=== PATIENT | male | born 1980 | race Caucasian/White ===

== ENCOUNTER → 2016-12-20 | Outpatient (CLI) | payer BC | LOC: FIMAGING 08:11 | PROVIDERS: ATTEND Internal Medicine Gastroenterology | DX: R10.13 Epigastric pain (principal) | CPT/HCPCS: 78227; A9537 ==

== ENCOUNTER 2017-01-03 09:43 | Observation (INO) | payer BC ==
--- NOTE | 2017-01-03 07:49 | PDHPUP ---
History & Physical Update H&P update statement: This history and physical update is based on an assessment of the patient which was completed after admission or registration (within 24 hours), but prior to the surgery/procedure. H&P update: H&P reviewed & patient examined, no change in patient's condition since H&P completed
[~2017-01-03 09:43] MED LIST: ceFAZolin 3 GM in D5W 100 ML IV ONE
[2017-01-03] MEDS ORDERED: LIDOCAINE 1% 2 ML INJ ID PRN (10:22)
[2017-01-03] MEDS ORDERED: LR 1,000 ML IV ONE (10:22)
[2017-01-03] MEDS ORDERED: PROPOFOL 200 MG/20 ML VIAL ONE (11:12)
[2017-01-03] MEDS ORDERED: DEXAMETHASONE 4 MG/ML VIAL ONE (11:12)
[2017-01-03] MEDS ORDERED: fentaNYL 100 MCG/2 ML INJ ONE ×5 (11:12→13:21)
[2017-01-03] MEDS ORDERED: ONDANSETRON 4 MG/2 ML VIAL ONE ×2 (11:12→12:39)
[2017-01-03] MEDS ORDERED: ROCURONIUM 50 MG/5 ML VIAL ONE (11:12)
[2017-01-03] MEDS ORDERED: MIDAZOLAM 2 MG/2 ML VIAL ONE (11:15)
[2017-01-03] MEDS ORDERED: SCOPOLAMINE HYDROBROMIDE 1.5 MG PATCH TD ONE (11:25)
[2017-01-03] MEDS ORDERED: SCOPOLAMINE HYDROBROMIDE 1.5 MG PATCH TD SCH (11:30)
[2017-01-03] MEDS ORDERED: BUPIVACAINE/EPI 0.25% 30 ML SDV ONE (11:38)
[2017-01-03] MEDS ORDERED: ONDANSETRON 4 MG/2 ML VIAL IVP PRN ×2 (12:04→14:37)
[2017-01-03] MEDS ORDERED: MEPERIDINE 25 MG/ML SYR IVP PRN (12:04)
[2017-01-03] MEDS ORDERED: LR 500 ML IV PRN (12:04)
[2017-01-03] MEDS ORDERED: DEXAMETHASONE 4 MG/ML VIAL IVP PRN (12:04)
[2017-01-03] MEDS ORDERED: NALOXONE HCL 0.4 MG/ML INJ IVP PRN ×3 (12:04→12:40)
--- NOTE | 2017-01-03 12:04 | PDANEPAE ---
ANE History of Present Illness 36 year old with PMH of obesity, KAITLYNN on CPAP, Chronic pain. He has had anesthesia without complication. ANE Past Medical History - Cardiovascular History Hx Hypertension: No Hx Arrhythmias: No Hx Chest Pain: No Hx Coronary Artery / Peripheral Vascular Disease: No Hx CHF / Valvular Disease: No Hx Palpitations: No - Pulmonary History Hx COPD: No Hx Asthma/Reactive Airway Disease: No Hx Recent Upper Respiratory Infection: No Hx Oxygen in Use at Home: No Hx Sleep Apnea: Yes Sleep Apnea Screening Result - Last Documented: Positive Pulmonary History Comment: SLEEP APNEA - Neurologic History Hx Cerebrovascular Accident: No Hx Seizures: No Hx Dementia: No Neurologic History Comment: MIGRAINES OCCAS - Endocrine History Hx Diabetes: No - Renal History Hx Renal Disorders: No - Liver History Hx Hepatic Disorders: No Hepatic History Comment: GB SXS. FATTY LIVER - Neurological & Psychiatric Hx Hx Neurological and Psychiatric Disorders: Yes Neurological / Psychiatric History Comment: ANXIETY - Cancer History Hx Cancer: No - Congenital Disorder History Hx Congenital Disorders: No - GI History Hx Gastrointestinal Disorders: Yes Gastrointestinal History Comment: ABD PAIN, GB SXS - Other Health History Other Health History: NEG - Chronic Pain History Chronic Pain: Yes (BACK PAIN, KNEES, ANKLES) - Surgical History Prior Surgeries: ANKLE/CALF SURG R. KNEE R MENISCUS. NASAL SURG ANE Review of Systems - Exercise capacity METS (RN): 4 METS ANE Patient History - Allergies Allergies/Adverse Reactions: tramadol Allergy (Severe, Verified 01/03/17 11:01) Anaphylaxis hydrocodone Allergy (Verified 01/03/17 11:00) - Home Medications Home Medications: Multivitamins [Multivitamin (*)] 1 each PO DAILY 09/13/15 [Last Taken 09/12/15] PRILOSEC 11/03/15 [Last Taken 01/02/17 08:00] Xanax 1 MG (*) 06/24/16 [Last Taken 01/02/17 17:00] Celebrex 01/02/17 [Last Taken 12/30/16] Clarinex 01/02/17 [Last Taken 01/02/17 08:00] Mylanta Liquid 01/02/17 [Last Taken 01/02/17 08:00] Tylenol 01/02/17 [Last Taken 01/02/17 17:00] - NPO status NPO Since - Liquids (Date): 01/02/17 NPO Since - Liquids (Time): 23:00 NPO Since - Solids (Date): 01/02/17 NPO Since - Solids (Time): 21:00 - Smoking Hx Smoking Status: Never smoked - Family Anes Hx Family Hx Anesthesia Complications: NEG ANE Labs/Vital Signs - Vital Signs Blood Pressure: 129/81 Heart Rate: 84 Respiratory Rate: 16 O2 Sat (%): 95 Height: 187.96 cm Weight: 163.293 kg ANE Physical Exam - Airway Neck exam: FROM Mallampati Score: Class 2 Mouth exam: normal dental/mouth exam - Pulmonary Pulmonary: no respiratory distress - Cardiovascular Cardiovascular: regular rate and rhythym - ASA Status ASA Status: II ANE Anesthesia Plan Anesthesia Plan: general endotracheal anesthesia Specialized Airway: video laryngoscope (glidescope for intubation) Urgent/Emergent Case: Bisi frye completed preop but documented later for safe timely pt care
[2017-01-03] MEDS: fentaNYL 100 MCG/2 ML INJ IVP PRN ×4 (12:41→13:26)
[2017-01-03] MEDS ORDERED: LORazepam 2 MG/ML INJ IVP ONE ×2 (12:43→16:45)
--- NOTE | 2017-01-03 12:44 | POSTANESTH ---
Post Anesthetic Evaluation Cardiovascular Status: Normal, Stable Respiratory Status: Normal, Stable Level of Consciousness/Mental Status: Can Participate in Eval Pain Control: Adequate, Prn Tx Ordered Nausea/Vomiting Control: Adequate, Prn Tx Ordered Complications Possibly Related to Anesthesia: None Noted
--- NOTE | 2017-01-03 12:45 | POSTOPPROG ---
Post Op Note Date of Operation: 01/03/17 Surgeon: Tyshawn Goncalves Anesthesiologist: [place] Anesthesia: GET(General Endotracheal) Pre-op Diagnosis: Biliary Dyskinesia Post-op Diagnosis: Chronic cholecystitis Procedure: Lap fay with liver biopsy Findings: adhesions, critical view obtained Inf/Abcess present in the surg proc area at time of surgery?: No EBL: Minimal Specimen(s): gallbladder, liver biopsy
--- NOTE | 2017-01-03 13:53 | GOP ---
[f rep st] OPERATIVE REPORT DATE OF OPERATION: 01/03/2017 SURGEON: Tyshawn Goncalves MD FIGURE REFINISHER AND REPAIRER: None. ANESTHESIA: General endotracheal. ANESTHESIOLOGIST: Dr. Rhoades. PREOPERATIVE DIAGNOSIS: Biliary dyskinesia with fatty liver. POSTOPERATIVE DIAGNOSIS: Chronic cholecystitis with fatty liver. PROCEDURE PERFORMED: 1. Laparoscopic cholecystectomy. 2. Liver biopsy. FINDINGS: Enlarged fatty liver. Critical view obtained. Biopsy taken from the lateral lobe. SPECIMENS: 1. Gallbladder. 1. Liver biopsy. 2. ESTIMATED BLOOD LOSS: 10 mL. DESCRIPTION OF PROCEDURE: The patient was greeted in the preoperative suite. Once again, risks, be nefits, and alternatives were discussed. Consent was signed. He was then brought back to the OR gaston ite, placed on the table in the supine position after all anesthesia machines, including SCDs were o n and functioning, World Health Organization time-out was performed. Antibiotics were given on-call to the operating room. After successful induction of anesthesia, the patient's abdomen was widely prepped and draped in typical sterile fashion. I entered the abdomen via a vertical cut down inferior to the umbilicus. I achieved insufflation in the patient's abdomen using Veress needle to 15 mmHg CO2, which was well tolerated by the patient. Through this site, I then inserted a 12 mm port using the Visiport technique. I then inserted 3 ad ditional 5 mm ports, 1 in the subxiphoid and 2 in the right upper quadrant, all under direct visuali zation. I then grabbed the fundus of the gallbladder and successfully retracted it cephalad. I was unable to retract it over the enlarged liver. I grasped the infundibulum and, using a combination of electrocautery and blunt dissection, identified 2 and only 2 structures leading toward the gallbl adder. The cystic duct was clipped and divided. The same was done for the cystic artery. Once it was successfully divided, I turned my attention toward taking the gallbladder off the liver bed, whi ch was done with electrocautery. Once done, it was placed in an EndoCatch bag and removed. I inspected my clips, which were noted to be in excellent position and hemostatic. After this was d one, I irrigated the right upper quadrant with 500 mL of sterile saline, noting clear effluent in th e suction canister. I then selected an area on the edge of the liver and took an approximately 1 cm section of it for my liver biopsy. It was removed and passed off. Hemostasis was achieved at this site with electrocautery and covered with a piece of Surgicel. Once again, all sites were noted to be hemostatic. I infiltrated local anesthesia into all the port sites, which were then removed. Prior to doing so, I closed my inferior umbilical incision using t alexander Bello-Thomaskeith fascial closure device and an 0 Vicryl stitch in an interrupted [id number] f ashion. Once this was done, I removed all port sites, desufflated and closed the skin with running 4-0 Monocryl over which Dermabond was placed. The patient was then extubated in the operative suite and taken to the PACU in satisfactory condition. COUNTS: All counts were reported as correct x2. DRAINS: None. /[id number]/MODL
[2017-01-03] MEDS: METOCLOPRAMIDE 10 MG/2 ML VIAL IVP PRN ×2 (16:00→22:11)
[2017-01-03] MEDS: D5W 1/2 NS W/ 20 KCl/L 1,000 ML IV SCH ×2 (16:03→22:38)
[2017-01-03] MEDS: oxyCODONE IR 5 MG TAB PO PRN ×2 (16:15→22:39)
[2017-01-03] MEDS ORDERED: MAGNESIUM HYDROXIDE 30 ML UDCUP PO PRN (16:55)
[2017-01-03] MEDS ORDERED: BISACODYL 10 MG SUPP PR PRN (16:55)
[2017-01-03] MEDS ORDERED: POLYETHYLENE GLYCOL 3350 17 GM PKT PO PRN (16:55)
[2017-01-03] MEDS: HYDROmorphONE/DILAUDID 1 MG/ML SYR IVP PRN (19:20)
[2017-01-03] MEDS ORDERED: CYCLOBENZAPRINE 10 MG TAB PO SCH (21:00)
[2017-01-03] MEDS: ALPRAZolam 1 MG TAB PO PRN (21:01)
[2017-01-03] MEDS: SENNOSIDES/DOCUSATE SODIUM TAB PO SCH (21:06)
[2017-01-03] MEDS: ACETAMINOPHEN 325 MG TAB PO PRN (22:11)
[2017-01-04] MEDS: HYDROmorphONE/DILAUDID 1 MG/ML SYR IVP PRN (01:20)
[2017-01-04] MEDS: D5W 1/2 NS W/ 20 KCl/L 1,000 ML IV SCH (06:01)
[2017-01-04] MEDS: oxyCODONE IR 5 MG TAB PO PRN ×3 (06:26→14:56)
[2017-01-04 08:09] VITALS: RESP 18
[2017-01-04] MEDS: SENNOSIDES/DOCUSATE SODIUM TAB PO SCH (08:28)
[2017-01-04] MEDS: ACETAMINOPHEN 325 MG TAB PO PRN (08:29)
[2017-01-04] MEDS ORDERED: ENOXAPARIN 40 MG/0.4 ML SYR SC SCH (09:00)
[2017-01-04] MEDS: ALPRAZolam 1 MG TAB PO PRN (09:26)
[2017-01-04 11:59] VITALS: BP 125/78; PULSE 84; TEMP 98.6; O2SAT 90
[2017-01-06] MEDS ORDERED: PATCH REMOVAL 1 EA PATCH TD SCH (11:23)
== END 2017-01-04 16:34 | disposition home or self-care (01) ==
LOC: FSGY 09:43 → F3E 14:37
PROVIDERS: ADMIT Surgery; ATTEND Surgery
PROC: 0FB04ZX Excision of Liver, Percutaneous Endoscopic Approach, Diagnostic (ICD-10-PCS; principal; 2017-01-03 11:15)
PROC: 0FT44ZZ Resection of Gallbladder, Percutaneous Endoscopic Approach (ICD-10-PCS; principal; 2017-01-03 11:15)
DX: K81.1 Chronic cholecystitis (principal); K76.0 Fatty (change of) liver, not elsewhere classified; F41.9 Anxiety disorder, unspecified; G47.33 Obstructive sleep apnea (adult) (pediatric)
CPT/HCPCS: 47379; 47562; G0378; J0690; J1100; J1170; J1650; J2060; J2250; J2405; J2704; J2765; J3010

== ENCOUNTER 2017-03-15 14:18 | Emergency (ER) | payer BC ==
[2017-03-15 14:30] VITALS: RESP 18; TEMP 98.2
--- NOTE | 2017-03-15 15:13 | EDPHY ---
H & P Stated Complaint: rash, itching for 5 days starting on arms, now all over torso Time Seen by Provider: 03/15/17 14:53 HPI/ROS: CHIEF COMPLAINT: Itching HISTORY OF PRESENT ILLNESS: The patient is a 36-year-old man who comes to the emergency department requesting medication for scabies. He states that he has had itching and small scabs throughout his torso and arms for the last week. He states that it is similar to several years ago when he had scabies. His partner does not have any symptoms. He has not been traveling. No fever. He has checked his bed in clothing and does not find any evidence of bedbugs. REVIEW OF SYSTEMS: Constitutional: denies: chills, fever, recent illness, recent injury EENTM: denies: blurred vision, double vision, nose congestion Respiratory: denies: cough, shortness of breath Cardiac: denies: chest pain, irregular heart rate, lightheadedness, palpitations Gastrointestinal/Abdominal: denies: abdominal pain, diarrhea, nausea, vomiting, blood streaked stools Genitourinary: denies: dysuria, frequency, hematuria, pain Musculoskeletal: denies: joint pain, muscle pain Skin: See HPI Neurological: denies: headache, numbness, paresthesia, tingling, dizziness, weakness Hematologic/Lymphatic: denies: blood clots, easy bleeding, easy bruising Immunologic/allergic: denies: HIV/AIDS, transplant EXAM: GENERAL: Well-appearing, well-nourished and in no acute distress. HEAD: Atraumatic, normocephalic. EYES: Pupils equal round and reactive to light, extraocular movements intact, sclera anicteric, conjunctiva are normal. ENT: TMs normal, nares patent, oropharynx clear without exudates. Moist mucous membranes. NECK: Normal range of motion, supple without lymphadenopathy or JVD. LUNGS: Breath sounds clear to auscultation bilaterally and equal. No wheezes rales or rhonchi. HEART: Regular rate and rhythm without murmurs, rubs or gallops. ABDOMEN: Soft, nontender, normoactive bowel sounds. No guarding, no rebound. No masses appreciated. BACK: No CVA tenderness, no spinal tenderness, step-offs or deformities EXTREMITIES: Normal range of motion, no pitting or edema. No clubbing or cyanosis. NEUROLOGICAL: Cranial nerves II through XII grossly intact. Normal speech, normal gait. 5/5 strength, normal movement in all extremities, normal sensation PSYCH: Normal mood, normal affect. SKIN: Several small scabs diffuse, pruritic, no erythema or warmth. No abscess. Source: Patient Exam Limitations: No limitations - Personal History Current Tetanus Diphtheria and Acellular Pertussis (TDAP): Yes Tetanus Vaccine Date: WITHIN 10 YRS - Medical/Surgical History Hx Asthma: No Hx Chronic Respiratory Disease: No Hx Diabetes: No Hx Cardiac Disease: No Hx Renal Disease: No Hx Cirrhosis: No Hx Alcoholism: No Hx HIV/AIDS: No Hx Splenectomy or Spleen Trauma: No Other PMH: costochondritis. anxiety, SVT, sinus surgery, knee surgery. obesity. Sleep apnea,cellulitis of leg/ prostitis - Family History Significant Family History: No pertinent family hx - Social History Smoking Status: Never smoked Alcohol Use: Sober Drug Use: None Constitutional: Initial Vital Signs Temperature (C) 36.8 C 03/15/17 14:24 Heart Rate 93 03/15/17 14:24 Respiratory Rate 18 03/15/17 14:24 Blood Pressure 169/103 H 03/15/17 14:24 O2 Sat (%) 94 03/15/17 14:24 O2 Delivery Mode Room Air Allergies/Adverse Reactions: tramadol Allergy (Severe, Verified 01/03/17 11:01) Anaphylaxis hydrocodone Allergy (Verified 01/03/17 15:03) Other-Enter Comments Home Medications: Medication Instructions Recorded ALPRAZolam [Xanax 1 MG (*)] 1 - 2 mg PO DAILY PRN 01/03/17 Acetaminophen [Tylenol ES 500 mg 1,000 mg PO BID PRN 01/03/17 (*)] Docusate Sodium [Colace 100 MG (*)] 100 mg PO BID PRN 01/03/17 celeCOXIB [Celebrex (*)] 200 mg PO DAILY 01/03/17 Ivermectin 3 mg PO ONCE #2 tablet 03/15/17 Permethrin 5% [Elimite 5%] 1 jed TP ONCE #1 cream 03/15/17 Medical Decision Making ED Course/Re-evaluation: The patient has several small scabs that could be consistent with scabies however there are not any specific pattern. They are intensely itchy. He has follow-up next week with his primary care physician. We agreed to try the Ivermectin that worked for him before in if this is not helping they will assess for other options with his primary physician. He also admits that he is an anxiety attack. He took Xanax about an hour ago. 3:40 p.m. the patient decided prefer to have the cream rather than the pill. Differential Diagnosis: Partial list of the Differential diagnosis considered include but were not limited to; scabies, anxiety, bedbugs and although unlikely based on the history and physical exam, I also considered hepatitis, renal disease, allergic reaction, cellulitis, abscess. I discussed these differential diagnoses and the plan with the patient as well as the usual and expected course. The patient understands that the diagnosis is provisional and that in medicine we are not always correct and that further workup is often warranted. Usual and customary warnings were given. All of the patient's questions were answered. The patient was instructed to return to the emergency department should the symptoms at all worsen or return, otherwise to followup with the physician as we discussed. Departure - Departure Disposition: Home, Routine, Self-Care Clinical Impression: Rash Condition: Fair Instructions: Acute Rash (ED) Referrals: Allan Longoria MD [Primary Care Provider] - As per Instructions Prescriptions: Ivermectin 3 mg PO ONCE #2 tablet Permethrin 5% [Elimite 5%] 1 jed TP ONCE #1 cream
[2017-03-15 16:03] VITALS: BP 149/89; PULSE 80; O2SAT 93
[2017-03-17] MEDS ORDERED: NITROGLYCERIN 2% 1 GM PACKET ONE (11:25)
[2017-03-17] MEDS ORDERED: LORazepam 2 MG/ML INJ ONE (12:01)
== END 2017-03-15 16:00 | disposition home or self-care (01) ==
LOC: CED 14:18
DX: R21 Rash and other nonspecific skin eruption (principal)
CPT/HCPCS: J2060

== ENCOUNTER → 2017-04-05 | Outpatient (CLI) | payer BC | LOC: FIMAGING 08:37 | PROVIDERS: ATTEND Internal Medicine Gastroenterology | DX: K30 Functional dyspepsia (principal) | CPT/HCPCS: 78264; A9541 ==

== ENCOUNTER → 2017-04-30 | Outpatient (CLI) | payer BC | LOC: FIMAGING 12:10 | PROVIDERS: ATTEND Internal Medicine Gastroenterology | DX: K76.0 Fatty (change of) liver, not elsewhere classified (principal); R16.1 Splenomegaly, not elsewhere classified ==

== ENCOUNTER 2017-08-02 17:44 | Emergency (ER) | payer OTHER ==
--- NOTE | 2017-08-02 18:14 | EDPHY ---
H & P Stated Complaint: Right leg pain/weakness, anxiety, diarrhea Time Seen by Provider: 08/02/17 17:58 HPI/ROS: CHIEF COMPLAINT: Right leg pain HISTORY OF PRESENT ILLNESS: The patient is a 37 y/o male with anxiety and prior leg cellulitis complaining of a 3 day h/o right lower leg pain. Onset of moderate RLE pain 3 days ago, increasing since then. The pain is localized to the medial aspect of the right lower leg and extends down his loer leg. He is quite concerned about DVT. He has a history of RLE gastrocnemius tear and surgical repair with subsequent severe cellulitis requiring IV abx. Denies swelling, weakness, or paresthesias. Chronic low back pain, without radicular sx. He denies chest pain, dyspnea, fever, recent illness or recent trauma. He also notes he had an atypical, "exceptionally bad" panic attack Saturday night for which he took Ativan and propranolol. REVIEW OF SYSTEMS: Constitutional: No fever, no chills Eyes: No visual changes ENT: No sore throat Respiratory: No cough, no shortness of breath Cardiac: No chest pain Gastrointestinal: No nausea, no vomiting, no abdominal pain Genitourinary: No hematuria, no dysuria Musculoskeletal: see HPI Skin: No rash Neurological: No headache, no numbness, no weakness Psychiatric: Anxiety - Personal History Current Tetanus/Diphtheria Vaccine: Yes Current Tetanus Diphtheria and Acellular Pertussis (TDAP): Yes Tetanus Vaccine Date: WITHIN 10 YRS - Medical/Surgical History PMH: PMH includes: 1. Severe anxiety and panic attacks - Ativan and propranolol 2. History of right leg cellulitis requiring admission after gastrocnemius surgery and ankle scope 3. Back pain Hx Asthma: No Hx Chronic Respiratory Disease: No Hx Diabetes: No Hx Cardiac Disease: No Hx Renal Disease: No Hx Cirrhosis: No Hx Alcoholism: No Hx HIV/AIDS: No Hx Splenectomy or Spleen Trauma: No Other PMH: costochondritis. anxiety, SVT, sinus surgery, knee surgery, fay,. obesity. Sleep apnea,cellulitis of leg/ prostitis - Social History Smoking Status: Never smoked Additional Social History: Nonsmoker. Employed. Lives in [place]. - Physical Exam Exam: General Appearance: Alert, anxious, obese, no distress Eyes: Pupils equal and round, no conjunctival pallor or injection ENT, Mouth: Mucous membranes moist Neck: Normal inspection Respiratory: Lungs are clear to auscultation Cardiovascular: Regular rate and rhythm Gastrointestinal: Abdomen is soft and non- tender Neurological: A&O, nonfocal, normal gait Skin: Warm and dry, no rash Extremities: normal inspection, no swelling, tenderness below right knee on anteromedial aspect, no erythema. Otherwise nontender, no pedal edema Psychiatric: Anxious Constitutional: Initial Vital Signs Temperature (C) 36.8 C 08/02/17 17:46 Heart Rate 85 08/02/17 17:46 Respiratory Rate 18 08/02/17 17:46 Blood Pressure 149/91 H 08/02/17 17:46 O2 Sat (%) 94 08/02/17 17:46 O2 Delivery Mode Room Air Allergies/Adverse Reactions: tramadol Allergy (Severe, Verified 01/03/17 11:01) Anaphylaxis hydrocodone Allergy (Verified 01/03/17 15:03) Other-Enter Comments Home Medications: Medication Instructions Recorded celeCOXIB [Celebrex (*)] 200 mg PO DAILY 01/03/17 Arelis Allergy 08/02/17 Ativan 08/02/17 BENADRYL 08/02/17 Hyoscyamine 08/02/17 Omeprazole 08/02/17 Tylenol 08/02/17 Medical Decision Making - Diagnostics Imaging Results: Extremity Venous Study 08/02/17 18:15 Impression: No deep venous thrombosis right leg. Results called to Dr. Granados at 7:15 PM. Imaging: Discussed imaging studies w/ square dance caller Radiologist ED Course/Re-evaluation: This is a 37 y/o male with history of anxiety, right leg surgery, and right leg cellulitis who presents with a few-day history of right leg pain and sensation of swelling. He has mild tenderness below his right knee on the anteromedial aspect, but otherwise has a normal exam. No systemic infectious symptoms decrease likelihood for cellulitis. I have low clinical suspicion for DVT, but patient is very concerned about this so plan for US to rule out blood clot. US is negative. Reassessed patient and discussed findings. His pain is likely musculoskeletal in nature and could have a psychosomatic component due to his anxiety. He feels quite relieved and is comfortable going home and following up with his PCP as needed. Return precautions discussed. Differential Diagnosis: includes though not limited to recurrent cellulitis, DVT, arterial compromise Departure - Departure Disposition: Home, Routine, Self-Care Clinical Impression: Anxiety, Pain in right lower leg Condition: Good Instructions: Anxiety (ED), Leg Pain (ED) Additional Instructions: Follow up with your primary care provider on Saturday for unimproved symptoms. Return to the ED for severe pain, redness, increasing pain, swelling, fever, or any concerns. Referrals: Allan Longoria MD [Primary Care Provider] - As per Instructions Report Scribed for: Amna Granados Report Scribed by: Tiffany Merlos Date of Report: 08/02/17 Time of Report: 18:14 Physician Review and Approval Statement: 08/02/17 18:34 Portions of this note were transcribed by a certified medical asst. I personally performed a history, physical exam, medical decision making, and confirmed accuracy of information the transcribed note.
[2017-08-02 19:36] VITALS: BP 142/84; PULSE 76; RESP 16; TEMP 98.1; O2SAT 96
== END 2017-08-02 19:36 | disposition home or self-care (01) ==
DX: M79.661 Pain in right lower leg (principal); F41.9 Anxiety disorder, unspecified

== ENCOUNTER → 2017-08-27 | Outpatient (CLI) | payer OTHER | LOC: CIMAGING 17:24 | PROVIDERS: ATTEND Internal Medicine | DX: M46.96 Unspecified inflammatory spondylopathy, lumbar region (principal); M79.605 Pain in left leg | CPT/HCPCS: 73502-PO ==

== ENCOUNTER → 2017-09-09 | Outpatient (CLI) | payer OTHER | LOC: FIMAGING 16:18 | PROVIDERS: ATTEND Internal Medicine | DX: R41.89 Other symptoms and signs involving cognitive functions and awareness (principal); M25.559 Pain in unspecified hip ==

== ENCOUNTER 2017-09-10 17:55 | Emergency (ER) | payer OTHER ==
[2017-09-10 18:03] VITALS: TEMP 98.2
--- NOTE | 2017-09-10 18:45 | EDPHY ---
H & P Stated Complaint: mental health eval-increasing depression Time Seen by Provider: 09/10/17 18:26 HPI/ROS: CHIEF COMPLAINT: Anxiety and depression HISTORY OF PRESENT ILLNESS: Patient is a 37-year-old man with a history of anxiety and depression. He is followed by Dr. Longoria who recommended he come here today. He also has a psychologist that he really likes and has an appoint with him tomorrow. He however does not have a psychiatrist. He had 1 that he fired in August. He also went to [place] for medical detox off of benzos 5 weeks ago. He had been on Xanax up until that point. Now he only occasionally takes gabapentin to help him sleep. He did take some of this last night as well as melatonin and propranolol that was left over from previous anxiety prescription. He denies suicidality. He denies homicidality. He denies hallucinations. He is well kept and able to care for himself. REVIEW OF SYSTEMS: Constitutional: denies: chills, fever, recent illness, recent injury EENTM: denies: blurred vision, double vision, nose congestion Respiratory: denies: cough, shortness of breath Cardiac: denies: chest pain, irregular heart rate, lightheadedness, palpitations Gastrointestinal/Abdominal: denies: abdominal pain, diarrhea, nausea, vomiting, blood streaked stools Genitourinary: denies: dysuria, frequency, hematuria, pain Musculoskeletal: denies: joint pain, muscle pain Skin: denies: lesions, rash, jaundice, bruising Neurological: denies: headache, numbness, paresthesia, tingling, dizziness, weakness Hematologic/Lymphatic: denies: blood clots, easy bleeding, easy bruising Immunologic/allergic: denies: HIV/AIDS, transplant EXAM: GENERAL: Well-appearing, well-nourished and in no acute distress. HEAD: Atraumatic, normocephalic. EYES: Pupils equal round and reactive to light, extraocular movements intact, sclera anicteric, conjunctiva are normal. ENT: TMs normal, nares patent, oropharynx clear without exudates. Moist mucous membranes. NECK: Normal range of motion, supple without lymphadenopathy or JVD. LUNGS: Breath sounds clear to auscultation bilaterally and equal. No wheezes rales or rhonchi. HEART: Regular rate and rhythm without murmurs, rubs or gallops. ABDOMEN: Soft, nontender, normoactive bowel sounds. No guarding, no rebound. No masses appreciated. BACK: No CVA tenderness, no spinal tenderness, step-offs or deformities EXTREMITIES: Normal range of motion, no pitting or edema. No clubbing or cyanosis. NEUROLOGICAL: Cranial nerves II through XII grossly intact. Normal speech, normal gait. 5/5 strength, normal movement in all extremities, normal sensation PSYCH: Very well-spoken, logical sentences, denies suicidality or since homicidality or intent to self-harm. SKIN: Warm, dry, normal turgor, no visible rashes or lesions. Source: Patient Exam Limitations: No limitations - Personal History Current Tetanus/Diphtheria Vaccine: Yes Current Tetanus Diphtheria and Acellular Pertussis (TDAP): Yes Tetanus Vaccine Date: WITHIN 10 YRS - Medical/Surgical History Hx Asthma: No Hx Chronic Respiratory Disease: No Hx Diabetes: No Hx Cardiac Disease: No Hx Renal Disease: No Hx Cirrhosis: No Hx Alcoholism: No Hx HIV/AIDS: No Hx Splenectomy or Spleen Trauma: No Other PMH: costochondritis. anxiety, SVT, sinus surgery, knee surgery, fay,. obesity. Sleep apnea,cellulitis of leg/ prostitis - Family History Significant Family History: No pertinent family hx - Social History Smoking Status: Never smoked Alcohol Use: Sober Constitutional: Initial Vital Signs Temperature (C) 36.8 C 09/10/17 18:00 Heart Rate 78 09/10/17 18:00 Respiratory Rate 20 09/10/17 18:00 Blood Pressure 152/87 H 09/10/17 18:00 O2 Sat (%) 95 09/10/17 18:00 O2 Delivery Mode Room Air Allergies/Adverse Reactions: tramadol Allergy (Severe, Verified 09/10/17 17:59) Anaphylaxis hydrocodone Allergy (Verified 09/10/17 17:59) Other-Enter Comments Home Medications: Medication Instructions Recorded celeCOXIB [Celebrex (*)] 200 mg PO DAILY 01/03/17 Arelis Allergy 08/02/17 BENADRYL 08/02/17 Hyoscyamine 08/02/17 Omeprazole 08/02/17 Tylenol 08/02/17 Medical Decision Making ED Course/Re-evaluation: The patient is depression anxious and has had a complicated prescription history with multiple SSRIs that made him feel suicidal he does not want to go back on nose. He also does not want to go back on benzos because of previous addiction. He is currently without a prescriber but has a psychologist that he very much likes. I will have Mental Health speak with him to try and give him resources for prescriber. He states that he made 20 phone calls today and most of the people on his list were not even psychiatrist. He does not wish to be admitted . I do not believe that he is a danger to himself. 9:10 p.m. the patient was given resource has and referrals. The he is happy with this and declines further workup or testing. Differential Diagnosis: Partial list of the Differential diagnosis considered include but were not limited to; anxiety, depression and although unlikely based on the history and physical exam, I also considered bipolar, schizophrenia, substance abuse. I discussed these differential diagnoses and the plan with the patient as well as the usual and expected course. The patient understands that the diagnosis is provisional and that in medicine we are not always correct and that further workup is often warranted. Usual and customary warnings were given. All of the patient's questions were answered. The patient was instructed to return to the emergency department should the symptoms at all worsen or return, otherwise to followup with the physician as we discussed. Departure - Departure Disposition: Home, Routine, Self-Care Clinical Impression: Anxiety Depression Qualifiers: Depression Type: major depressive disorder Major depression recurrence: recurrent Active/Remission status: currently active Major depression episode severity: moderate Qualified Code(s): F33.1 - Major depressive disorder, recurrent, moderate Condition: Fair Instructions: Depression (ED), Anxiety (ED) Referrals: Allan Longoria MD [Primary Care Provider] - As per Instructions
[2017-09-10 21:27] VITALS: BP 142/79; PULSE 84; RESP 16; O2SAT 96
== END 2017-09-10 21:27 | disposition home or self-care (01) ==
DX: F41.9 Anxiety disorder, unspecified (principal); F33.1 Major depressive disorder, recurrent, moderate

== ENCOUNTER 2017-09-14 03:53 | Emergency (ER) | payer OTHER ==
[2017-09-14 04:03] VITALS: BP 141/92; PULSE 63; RESP 20; TEMP 97.7; O2SAT 95
--- NOTE | 2017-09-14 04:27 | EDPHY ---
H & P Stated Complaint: unable to sleep- blurry vision on right eye Time Seen by Provider: 09/14/17 04:09 HPI/ROS: Chief Complaint: Difficulty sleeping HPI: A 37-year-old male with a history of anxiety and depression is presenting complaining of inability sleeping. Patient was seen here several days ago with anxiety was not suicidal at that time. Patient recently went through a detox from benzodiazepines about 6 weeks ago. He has been taking gabapentin and occasional hike ostomy for sleep. Last night he took melatonin 3 mg and was able to sleep for 7 hr. He was saw his therapist yesterday was concerned about his melatonin use. Tonight patient was again took gabapentin intake ostomy was unable to sleep. He did not take any other melatonin. He is presenting this morning complaining of inability to sleep. He is wondering if perhaps some Versed would be an option to help him sleep. Did also is complaining of some blurry vision in his right eye whenever he takes a gabapentin. No headache. No nausea or vomiting. No fevers or chills. No numbness or weakness. He states that he does not want to take diphenhydramine as he has been a dependent done in the past as well. ROS: 10 point Review of Systems is negative except as noted in the HPI. PMH: Anxiety and depression, benzodiazepine dependence, Social History: No smoking, no alcohol, no recreational drug use Family History: non-contributory Physical Exam: Gen: Awake, Alert, No Distress, anxious HEENT: Nose: no rhinorrhea Eyes: PERRLA, EOMI Mouth: Moist mucosa Neck: Supple, no JVD Chest: nontender, lungs clear to auscultation Heart: S1, S2 normal, no murmur Abd: Soft, non-tender, no guarding Back: no CVA tenderness, no midline tenderness Ext: no edema, non-tender Skin: no rash Neuro: CN II-XII intact, Sensation grossly intact, Strength 5/5 in bilateral upper and lower extremities - Personal History Tetanus Vaccine Date: WITHIN 10 YRS - Medical/Surgical History Hx Asthma: No Hx Chronic Respiratory Disease: No Hx Diabetes: No Hx Cardiac Disease: No Hx Renal Disease: No Hx Cirrhosis: No Hx Alcoholism: No Hx HIV/AIDS: No Hx Splenectomy or Spleen Trauma: No Other PMH: costochondritis. anxiety, SVT, sinus surgery, knee surgery, fay,. obesity. Sleep apnea,cellulitis of leg/ prostitis - Social History Smoking Status: Never smoked Constitutional: Initial Vital Signs Temperature (C) 36.5 C 09/14/17 03:59 Heart Rate 63 09/14/17 03:59 Respiratory Rate 20 09/14/17 03:59 Blood Pressure 141/92 H 09/14/17 03:59 O2 Sat (%) 95 09/14/17 03:59 Allergies/Adverse Reactions: tramadol Allergy (Severe, Verified 09/14/17 03:58) Anaphylaxis hydrocodone Allergy (Verified 09/14/17 03:58) Other-Enter Comments Home Medications: Medication Instructions Recorded celeCOXIB [Celebrex (*)] 200 mg PO DAILY 01/03/17 Arelis Allergy 08/02/17 BENADRYL 08/02/17 Hyoscyamine 08/02/17 Omeprazole 08/02/17 Tylenol 08/02/17 Medical Decision Making ED Course/Re-evaluation: 37-year-old male with insomnia is asking for Versed to help him sleep. Patient was able to get some sleep last night after he took melatonin but did not want to take it tonight. He is not really able to give me a good reason why he did not want to take it tonight other than his therapist was concerned about him taking it the night before. He is not suicidal at this time. He is jus for safety. I have recommended that he take melatonin as it worked last night and to follow up with primary care physician. Departure - Departure Disposition: Home, Routine, Self-Care Clinical Impression: Insomnia Condition: Good Instructions: Insomnia (ED) Additional Instructions: You may take melatonin that has worked for you in the past. Follow up with primary care physician in 2-3 days for further evaluation. Follow up with [facility] to establish with a psychiatrist. Referrals: Allan Longoria MD [Primary Care Provider] - As per Instructions
== END 2017-09-14 04:38 | disposition home or self-care (01) ==
DX: G47.00 Insomnia, unspecified (principal)

== ENCOUNTER → 2017-11-06 | Outpatient (CLI) | payer MEDICAID | LOC: FIMAGING 17:50 | PROVIDERS: ATTEND Internal Medicine | DX: M50.31 Other cervical disc degeneration, high cervical region (principal); N31.9 Neuromuscular dysfunction of bladder, unspecified ==

== ENCOUNTER 2018-01-03 09:11 | Emergency (ER) | payer MEDICAID ==
--- NOTE | 2018-01-03 09:55 | EDPHY ---
H & P Stated Complaint: Nausea and constipation - Personal History Current Tetanus Diphtheria and Acellular Pertussis (TDAP): Yes Tetanus Vaccine Date: WITHIN 10 YRS - Medical/Surgical History Hx Asthma: No Hx Chronic Respiratory Disease: Yes Hx Diabetes: No Hx Cardiac Disease: No Hx Renal Disease: No Hx Cirrhosis: No Hx Alcoholism: No Hx HIV/AIDS: No Hx Splenectomy or Spleen Trauma: No Other PMH: costochondritis. anxiety, SVT, sinus surgery, knee surgery, fay,. obesity. Sleep apnea,cellulitis of leg/ prostitis - Social History Smoking Status: Never smoked Time Seen by Provider: 01/03/18 09:39 HPI/ROS: CHIEF COMPLAINT: "I have and had a bowel movement in 50 hr" HISTORY OF PRESENT ILLNESS: 37-year-old male with medical history significant for remote cholecystectomy complaining of no bowel movement in 50 hr, abdominal distension, postprandial nausea. No back pain. Passing gas as normal. No headache. No fever or chills. No back or flank pain. No urinary abnormality. No incontinence. No back pain. No testicle pain Patient notes is the few days of sore throat as well. No trismus no drooling. PRIMARY CARE PROVIDER: REVIEW OF SYSTEMS: A ten point review of systems was performed and is negative with the exception of the items mentioned in the HPI PAST MEDICAL & SURGICAL HISTORY: Remote history of cholecystectomy. Anxiety. Depression. SOCIAL HISTORY: Nonsmoker PHYSICAL EXAM (Prior to examination, patient consented to physical exam, hands were washed and my usual and customary physical exam procedures followed) 1) GENERAL: Well-developed, well-nourished, alert and oriented. Appears to be in no acute distress. 2) HEAD: Normocephalic, atraumatic 3) HEENT: Pupils equal, round, reactive to light bilaterally. Sclera anicteric. 4) NECK: Full range of motion, no meningeal signs. 5) LUNGS: Clear auscultation bilaterally, no wheezes, no rhonchi, no retractions. 6) HEART: Regular rate and rhythm, no murmur, no heave, no gallop. 7) ABDOMEN: No guarding, no rebound, no focal tenderness, negative McBurney's, negative Langley's, negative Rovsing's, negative peritoneal sign, 8) MUSCULOSKELETAL: Moving all extremities, no focal areas of tenderness, no obvious trauma. No peripheral edema or discoloration. Patella Achilles reflexes intact to bilateral strength 5/5 9) BACK: No CVA tenderness, no midline vertebral tenderness, no fluctuance, no step-off, no obvious trauma, no visual or palpable abnormality. 10) SKIN: No rash, no petechiae. 11) Psychiatric: Patient is oriented X 3, there is no agitation. DIFFERENTIAL DIAGNOSIS: My differential diagnosis includes, but is not limited to, acute appendicitis, cauda equina, acute cholecystitis, bowel obstruction, acute pancreatitis,, gastritis and urinary tract infection. The patient understands that this diagnosis is provisional and can never be 100% accurate. This is a partial list of diagnoses considered. These considerations are based on history, physical exam, past history and reassessment. (Brittany Minaya) Constitutional: Initial Vital Signs Temperature (C) 36.7 C 01/03/18 09:12 Heart Rate 88 01/03/18 09:12 Respiratory Rate 16 01/03/18 09:12 Blood Pressure 140/86 H 01/03/18 09:12 O2 Sat (%) 94 01/03/18 09:12 O2 Delivery Mode Room Air Allergies/Adverse Reactions: tramadol Allergy (Severe, Verified 09/14/17 03:58) Anaphylaxis hydrocodone Allergy (Verified 09/14/17 03:58) Other-Enter Comments Home Medications: Medication Instructions Recorded celeCOXIB [Celebrex (*)] 200 mg PO DAILY 01/03/17 BENADRYL 08/02/17 Omeprazole 08/02/17 Tylenol 08/02/17 Gabapentin 01/03/18 Ondansetron Odt [Zofran Odt] 4 mg PO Q4PRN PRN #10 tab 01/03/18 Xanax 01/03/18 Medical Decision Making ED Course/Re-evaluation: 9:55 a.m.: I saw this patient independently based on established practice protocols. Care of patient under supervision of secondary supervising physician Dr Jasso 10:50 a.m.: Re-evaluation, re-examined his abdomen which is soft no guarding no rebound no focal tenderness. Discussed his imaging results showing normal bowel gas pattern with no air-fluid levels, no evidence of obvious obstruction. I think that acute surgical abdominal pathology is less than likely in this patient. I do not think that laboratory studies are indicated at this time. I do not think that CT imaging is indicated at this time. He would like to take MiraLax combined with Gatorade as this is assisted him in the past. I offered GoLYTELY which he declines. He has been informed that early acute abdominal process is not ruled out and therefore the importance of return to the ER immediately should he develop new or worsening symptoms, definitely if he develops worsening pain, if you develop fevers or chills needs to return to the ER immediately. He does request prescription for Zofran. He notes nausea after eating potato chips an ice cream sandwich last evening. I recommend bland diet initially with advancement to increasing fiber intake. He is agreeable with this. Doubt cauda equina or other spinal compressive pathology. (Brittany Minaya) Other Provider: The patient was evaluated and managed by the Physician Bag Filler. My co- signature indicates that I have reviewed this chart and I agree with the findings and plan of care as documented. I am the secondary supervising physician. (Janice Jasso) Departure - Departure Disposition: Home, Routine, Self-Care Clinical Impression: Abdominal pain Condition: Good Instructions: Acute Abdominal Pain (ED) Additional Instructions: Seek immediate medical attention if you develop new or worsening symptoms, if you develop fevers, chills, inability to tolerate oral intake or any other symptoms that concerns you. Referrals: Allan Longoria MD [Primary Care Provider] - 1-2 days without fail Prescriptions: Ondansetron Odt [Zofran Odt] 4 mg PO Q4PRN PRN #10 tab PRN Reason: Nausea
[2018-01-03 11:22] VITALS: BP 123/72
== END 2018-01-03 11:22 | disposition home or self-care (01) ==
DX: R10.9 Unspecified abdominal pain (principal); Z90.49 Acquired absence of other specified parts of digestive tract

== ENCOUNTER 2018-02-17 | Emergency (ER) | payer MEDICAID | END 2018-02-17 20:31 | disposition home or self-care (01) ==

== ENCOUNTER 2018-03-17 04:52 | Emergency (ER) | payer MEDICAID ==
--- NOTE | 2018-03-17 04:56 | EDPHY ---
H & P Time Seen by Provider: 03/17/18 04:56 HPI/ROS: HPI CHIEF COMPLAINT: Multiple complaints HISTORY OF PRESENT ILLNESS: 37-year-old male, history of anxiety, presents emergency room multiple complaints. Patient states that he suffers from depression. And over the weekend he had intercourse with multiple partners. He states he had unprotected intercourse. He reports now that he has some burning when he urinates. Denies any discharge or drip from his penis. Denies testicular pain or lesions. Additionally reports that he has had some itchy bumps all over his skin that he is concerned may be scabies. He presents emergency room is requesting to be treated for 1. scabies. 2. would like to be treated for STDs gonorrhea chlamydia, and 3. he would like to be treated for urethritis. Past Medical History: History of urethritis and prostatitis, history of anxiety , history depression Past Surgical History: No recent surgery Social History: Denies daily use of drugs alcohol tobacco. Family History: Noncontributory. ROS REVIEW OF SYSTEMS: 10 Systems were reviewed and negative with the exception of the elements mentioned in the history of present illness. Exam Constitutional appears well nontoxic , no acute distress triage nursing summary reviewed, vital signs reviewed, awake/alert. Eyes normal conjunctivae and sclera, EOMI, PERRLA. HENT posterior pharynx unremarkable. normal inspection, atraumatic, moist mucus membranes, no epistaxis, neck supple/ no meningismus, no raccoon eyes. Respiratory clear to auscultation bilaterally, normal breath sounds, no respiratory distress, no wheezing. Cardiovascular rate normal, regular rhythm, no murmur, no edema, distal pulses normal. Gastrointestinal soft, non-tender, no rebound, no guarding, normal bowel sounds, no distension, no pulsatile mass. Genitourinary no CVA tenderness. Musculoskeletal no midline vertebral tenderness, full range of motion, no calf swelling, no tenderness of extremities, no meningismus, good pulses, neurovascularly intact. Skin small area diffuse of red raised bumps, no particular purpura, possible insect bite pink, warm, & dry, no rash, skin atraumatic. Neurologic awake, alert and oriented x 3, AAOx3, moves all 4 extremities equally, motor intact, sensory intact, CN II-XII intact, normal cerebellar, normal vision, normal speech. Psychiatric normal mood/affect. Heme/Lymph/Immune no lymphadenopathy. Differential Diagnosis: Includes but is not limited to in a particular order urinary tract infection, urethritis, STI gonorrhea chlamydia, scabies, anxiety Medical Decision Making: Plan for this patient IM Rocephin, 2 g of azithromycin. Patient requesting steroids for itching. Will give him a limited supply prednisone, additionally permethrin cream for treatment of scabies at his request, additionally Keflex antibiotic. Will send urinalysis, and STI testing. Re-evaluation: Return precautions discussed with the patient understands return emergency room if develops any worsening symptoms including worsening rash, worsening urinary type symptoms, back pain, fever, vomiting or doing worse. Urinalysis reviewed. No evidence of acute infection. Source: Patient - Personal History Tetanus Vaccine Date: WITHIN 10 YRS - Medical/Surgical History Hx Asthma: No Hx Chronic Respiratory Disease: No Hx Diabetes: No Hx Cardiac Disease: No Hx Renal Disease: No Hx Cirrhosis: No Hx Alcoholism: No Hx HIV/AIDS: No Hx Splenectomy or Spleen Trauma: No Other PMH: costochondritis. anxiety, SVT, sinus surgery, knee surgery, fay,. obesity. Sleep apnea,cellulitis of leg/ prostitis - Social History Smoking Status: Never smoked Constitutional: Initial Vital Signs Temperature (C) 37.2 C 03/17/18 04:54 Heart Rate 90 03/17/18 04:54 Respiratory Rate 16 03/17/18 04:54 Blood Pressure 160/90 H 03/17/18 04:54 O2 Sat (%) 94 03/17/18 04:54 O2 Delivery Mode Room Air Allergies/Adverse Reactions: tramadol Allergy (Severe, Verified 09/14/17 03:58) Anaphylaxis hydrocodone Allergy (Verified 09/14/17 03:58) Other-Enter Comments Home Medications: Medication Instructions Recorded celeCOXIB [Celebrex (*)] 200 mg PO DAILY 01/03/17 BENADRYL 08/02/17 Tylenol 08/02/17 Gabapentin 01/03/18 Ondansetron Odt [Zofran Odt] 4 mg PO Q4PRN PRN #10 tab 01/03/18 Xanax 01/03/18 Pantoprazole Sodium 02/17/18 Buspar (*) 02/25/18 Wellbutrin 100mg (*) 02/25/18 Cephalexin [Keflex] 500 mg PO Q6H #28 cap 03/17/18 Permethrin 5% [Elimite 5%] 1 jed TP DAILY #1 cream 03/17/18 predniSONE 60 mg PO DAILY #9 tab 03/17/18 Medical Decision Making - Data Points Laboratory Results: 03/17/18 03/17/18 05:00 05:00 Urine Color PALE YELLOW Urine Appearance CLEAR Urine pH 6.0 (5.0-7.5) Ur Specific [place] 1.003 (1.002-1.030) Urine Protein NEGATIVE (NEGATIVE) Urine Ketones NEGATIVE (NEGATIVE) Urine Blood NEGATIVE (NEGATIVE) Urine Nitrate NEGATIVE (NEGATIVE) Urine Bilirubin NEGATIVE (NEGATIVE) Urine Urobilinogen NEGATIVE EU EU (0.2-1.0) Ur Leukocyte Esterase NEGATIVE (NEGATIVE) Urine Glucose NEGATIVE (NEGATIVE) N.gonorrhoeae RNA (TMA) Pending Departure - Departure Disposition: Home, Routine, Self-Care Clinical Impression: STD (male), Scabies, Urethritis Condition: Good Instructions: Sexually Transmitted Diseases (ED), Condom Use (ED), Safe Sex (ED ), Nonspecific Urethritis in Men (ED), Scabies (ED) Referrals: Allan Longoria MD [Primary Care Provider] - As per Instructions Yumiko Leon MD [Medical Doctor] - As per Instructions Prescriptions: Cephalexin [Keflex] 500 mg PO Q6H #28 cap Permethrin 5% [Elimite 5%] 1 jed TP DAILY #1 cream predniSONE 60 mg PO DAILY #9 tab
[2018-03-17 05:00] VITALS: BP 160/90
[2018-03-17] MEDS ORDERED: AZITHROMYCIN 250 MG TAB PO ONE (05:16)
== END 2018-03-17 05:50 | disposition home or self-care (01) ==
DX: A64 Unspecified sexually transmitted disease (principal); B86 Scabies; N34.2 Other urethritis; F41.8 Other specified anxiety disorders
CPT/HCPCS: J0696

== ENCOUNTER 2018-06-10 19:09 | Emergency (ER) | payer MEDICAID ==
[2018-06-10] MEDS ORDERED: NS 1,000 ML IV ONE (20:00)
--- NOTE | 2018-06-10 20:00 | EDPHY ---
H & P Stated Complaint: Difficulty swallowing x10 days, loose stools/constipation, abd hx Time Seen by Provider: 06/10/18 19:47 HPI/ROS: HPI: This is a 38-year-old male who presents with Chief Complaint: Difficulty swallowing x10 days, loose stools/constipation, abd hx Location: throat Quality: Difficulty swallowing Duration: 10 days Signs and Symptoms: no fever, no nausea, no vomiting, no hematemesis, no blood in stool, + abdominal bloating, + diarrhea, no back pain, no urinary symptoms, no testicular/groin pain, no indigestion, no chest pain, no shortness of breath , + constipation Timing: Acute on chronic Severity: Moderate Context: Patient has a history of cholecystectomy, peptic ulcer disease presents with several complaints including difficulty swallowing any type of food other than liquids for the last 10 days. Patient attempted to eat meat this evening and had to induce vomiting to feel relief. Patient also reports generalized abdominal bloating and"not feeling right." He reports that his stools have been alternating between loosen constipation. He has had a total of 4 loose stools today. Patient is followed by Dr. John. He has had 2 EGDs in the past 5 years. The 1st 1 showed peptic ulcer disease in the 2nd showed improvement in symptoms with gastritis. He reports that he is originally on 40 mg twice daily of PPI and has slowly taper down to 20 mg every other day. 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 Modifying Factors: See above Comment: ROS: A comprehensive 10 system review of systems is otherwise negative aside from elements mentioned in the history of present illness. MEDICAL/SURGICAL/SOCIAL HISTORY: Medical history: costochondritis, anxiety, SVT, obesity, Sleep apnea, cellulitis of leg, prostatitis Surgical history: Sinus surgery, knee arthroscopy, cholecystectomy Social history: Never smoked. Family history noncontributory. CONSTITUTIONAL: Morbidly obese, slightly anxious, nontoxic appearing adult white male, awake and alert, no obvious distress HEENT: Atraumatic and normocephalic, PERRL, EOMI. Nares patent; no rhinorrhea; no nasal mucosal edema. Tympanic membranes clear. Oropharynx clear, no exudate and moist pink mucosa. Airway patent. No lymphadenopathy. No meningismus. Cardiovascular: Normal S1/S2, regular rate, regular rhythm, without murmur rub or gallop. PULMONARY/CHEST: Symmetrical and nontender. Clear to auscultation bilaterally. Good air movement. No accessory muscle usage. ABDOMEN: Soft, nondistended, nontender, no rebound, no guarding, no peritoneal signs, no masses or organomegaly. No CVAT. EXTREMITIES: 2/2 pulses, strength 5/5, no deformities, no clubbing, no cyanosis or edema. NEUROLOGICAL: no focal neuro deficits. GCS 15. Speech is clear with no drooling. SKIN: Warm and dry, no erythema. no rash. Good capillary refill. Source: Patient Exam Limitations: No limitations - Personal History Current Tetanus Diphtheria and Acellular Pertussis (TDAP): Yes Tetanus Vaccine Date: WITHIN 10 YRS - Medical/Surgical History Hx Asthma: No Hx Chronic Respiratory Disease: No Hx Diabetes: No Hx Cardiac Disease: No Hx Renal Disease: No Hx Cirrhosis: No Hx Alcoholism: No Hx HIV/AIDS: No Hx Splenectomy or Spleen Trauma: No Other PMH: costochondritis. anxiety, SVT, sinus surgery, knee surgery, fay,. obesity. Sleep apnea,cellulitis of leg/ prostitis - Social History Smoking Status: Never smoked Constitutional: Initial Vital Signs Temperature (C) 36.8 C 06/10/18 19:20 Heart Rate 78 06/10/18 19:20 Respiratory Rate 18 06/10/18 19:20 Blood Pressure 136/81 H 06/10/18 19:20 O2 Sat (%) 97 06/10/18 19:20 O2 Delivery Mode Room Air Allergies/Adverse Reactions: tramadol Allergy (Severe, Verified 06/10/18 19:19) Anaphylaxis hydrocodone Allergy (Verified 06/10/18 19:19) Other-Enter Comments Home Medications: Medication Instructions Recorded celeCOXIB [Celebrex (*)] 200 mg PO DAILY 01/03/17 BENADRYL 08/02/17 Tylenol 08/02/17 Gabapentin 01/03/18 Xanax 01/03/18 Pantoprazole Sodium 02/17/18 Buspar (*) 02/25/18 Wellbutrin 100mg (*) 02/25/18 Cephalexin [Keflex] 500 mg PO Q6H #28 cap 03/17/18 Permethrin 5% [Elimite 5%] 1 jed TP DAILY #1 cream 09/17/18 Medical Decision Making - Diagnostics Imaging Results: Imaging Impressions Abdomen CT 06/10/18 20:00 Impression: 1. Mild hepatic steatosis. 2. No CT evidence of appendicitis, abscess or bowel obstruction. Findings discussed with Gretchen Adkins PAC at 21:32 hour, 06/10/2018. ED Course/Re-evaluation: Vital signs reviewed and stable upon arrival. No signs of airway compromise, drooling, esophageal foreign body IV access and laboratory studies along with CT abdomen and pelvis scan ordered 1 L normal saline given. Patient politely declined any antiemetics, Reglan, Protonix, Carafate. 2052: Labs reviewed. No signs of leukocytosis/anemia/platelet dysfunction/MANN/ elevated LFTs/electrolyte imbalance/pancreatitis. 2099: Patient is drinking liquids without any difficulty. 2199: Called by Radiology, Dr. Polo, who reports status post cholecystectomy but no other acute abdominal process. Long discussion with patient who politely declines any medications and prefers to follow up with Gastroenterology, Dr. John, to discuss candidacy for EGD versus swallow study. This patient was seen under the supervision of my secondary supervising physician. I evaluated care for this patient independently. Discussed this patient with Dr. Granados who did not see the patient. Differential Diagnosis: Abdominal pain including but not limited to appendicitis, cholecystitis, gastritis and urinary tract infection. - Data Points Laboratory Results: Laboratory Results 06/10/18 20:15 06/10/18 20:15 06/10/18 06/10/18 20:15 20:15 WBC 5.39 10^3/uL 10^3/uL (3.80-9.50) RBC 5.79 10^6/uL 10^6/uL (4.40-6.38) Hgb 16.6 g/dL g/dL (13.7-17.5) Hct 47.2 % % (40.0-51.0) MCV 81.5 fL fL (81.5-99.8) MCH 28.7 pg pg (27.9-34.1) MCHC 35.2 g/dL g/dL (32.4-36.7) RDW 13.0 % % (11.5-15.2) Plt Count 244 10^3/uL 10^3/uL (150-400) MPV 10.1 fL fL (8.7-11.7) Neut % (Auto) 43.9 % % (39.3-74.2) Lymph % (Auto) 43.0 % % (15.0-45.0) [place] % (Auto) 7.1 % % (4.5-13.0) Eos % (Auto) 4.5 % % (0.6-7.6) Baso % (Auto) 1.3 % % (0.3-1.7) Nucleat RBC Rel Count 0.0 % % (0.0-0.2) Absolute Neuts (auto) 2.37 10^3/uL 10^3/uL (1.70-6.50) Absolute Lymphs (auto) 2.32 10^3/uL 10^3/uL (1.00-3.00) Absolute Monos (auto) 0.38 10^3/uL 10^3/uL (0.30-0.80) Absolute Eos (auto) 0.24 10^3/uL 10^3/uL (0.03-0.40) Absolute Basos (auto) 0.07 10^3/uL 10^3/uL (0.02-0.10) Absolute Nucleated RBC 0.00 10^3/uL 10^3/uL (0-0.01) Immature Gran % 0.2 % % (0.0-1.1) Immature Gran # 0.01 10^3/uL 10^3/uL (0.00-0.10) Sodium 139 mEq/L mEq/L (135-145) Potassium 4.4 mEq/L mEq/L (3.5-5.2) Chloride 104 mEq/L mEq/L (97-110) Carbon Dioxide 24 mEq/l mEq/l (22-31) Anion Gap 11 mEq/L mEq/L (6-14) BUN 15 mg/dL mg/dL (7-23) Creatinine 1.1 mg/dL mg/dL (0.7-1.3) Estimated GFR > 60 Glucose 101 mg/dL H mg/dL (70-100) Calcium 9.6 mg/dL mg/dL (8.5-10.4) Total Bilirubin 0.7 mg/dL mg/dL (0.1-1.4) Conjugated Bilirubin 0.2 mg/dL mg/dL (0.0-0.5) Unconjugated Bilirubin 0.5 mg/dL mg/dL (0.0-1.1) AST 58 IU/L IU/L (17-59) ALT 118 IU/L H IU/L (21-72) Alkaline Phosphatase 62 IU/L IU/L (38-126) Total Protein 7.6 g/dL g/dL (6.3-8.2) Albumin 4.9 g/dL g/dL (3.5-5.0) Lipase 165 IU/L IU/L (23-300) Medications Given: Discontinued Medications Sodium Chloride (Ns) 1,000 mls @ 0 mls/hr IV EDNOW ONE; Wide Open PRN Reason: Protocol Stop: 06/10/18 20:01 Last Admin: 06/10/18 20:20 Dose: 1,000 mls Departure - Departure Disposition: Home, Routine, Self-Care Clinical Impression: Dysphagia Qualifiers: Dysphagia type: unspecified Qualified Code(s): R13.10 - Dysphagia, unspecified Condition: Good Instructions: Dysphagia (ED), Diet for Stomach Ulcers and Gastritis (ED), Gastroesophageal Reflux Disease (ED) Additional Instructions: Consume a minimum of 8-10 glasses of water or electrolyte fluid replacement drinks that include Gatorade, Powerade, Pedialyte. Eat a soft, bland diet until seen by Gastroenterology. Follow-up with Gastroenterology in the next 3-5 days. Return to the Emergency Room if symptoms do not resolve in the next 48-72 hours , you spike a fever > 102 F, or experience intractable abdominal pain/nausea/ vomiting. Referrals: Allan Longoria MD [Primary Care Provider] - As per Instructions Kasia John MD [Medical Doctor] - As per Instructions
[2018-06-10] MEDS ORDERED: IOPAMIDOL (ISOVUE-300) 100 ML BTL ONE (20:09)
[2018-06-10 20:26] LABS: PLATELET COUNT 244 10^3/uL (150-400)
[2018-06-10 22:22] VITALS: BP 128/82
== END 2018-06-10 22:21 | disposition home or self-care (01) ==
DX: R19.5 Other fecal abnormalities (principal); R13.10 Dysphagia, unspecified; K76.0 Fatty (change of) liver, not elsewhere classified; E86.9 Volume depletion, unspecified
CPT/HCPCS: Q9967

== ENCOUNTER → 2018-07-03 | Outpatient (CLI) | payer MEDICAID | LOC: CIMAGING 13:13 | PROVIDERS: ATTEND Internal Medicine | DX: M25.511 Pain in right shoulder (principal) | CPT/HCPCS: 73030-PO ==

== ENCOUNTER 2018-07-13 07:48 | Emergency (ER) | payer MEDICAID, OTHER ==
--- NOTE | 2018-07-13 08:00 | EDPHY ---
H & P Stated Complaint: L arm tingling starting 6:30am--chest pain continues Time Seen by Provider: 07/13/18 07:50 - Personal History Tetanus Vaccine Date: WITHIN 10 YRS - Medical/Surgical History Hx Asthma: No Hx Chronic Respiratory Disease: No Hx Diabetes: No Hx Cardiac Disease: No Hx Renal Disease: No Hx Cirrhosis: No Hx Alcoholism: No Hx HIV/AIDS: No Hx Splenectomy or Spleen Trauma: No Other PMH: costochondritis. anxiety, SVT, sinus surgery, knee surgery, fay,. obesity. Sleep apnea - Social History Smoking Status: Never smoked Constitutional: Initial Vital Signs Temperature (C) 36.5 C 07/13/18 07:52 Heart Rate 76 07/13/18 07:52 Respiratory Rate 16 07/13/18 07:52 Blood Pressure 151/81 H 07/13/18 07:52 O2 Sat (%) 97 07/13/18 07:52 O2 Delivery Mode Nasal Cannula O2 (L/minute) 3 Allergies/Adverse Reactions: tramadol Allergy (Severe, Verified 06/10/18 19:19) Anaphylaxis hydrocodone Allergy (Verified 06/10/18 19:19) Other-Enter Comments Home Medications: Medication Instructions Recorded CeleBREX 07/13/18 Gabapentin 07/13/18 Xanax 07/13/18 Medical Decision Making ED Course/Re-evaluation: CHIEF COMPLAINT: Chest pain, left arm numbness HISTORY OF PRESENT ILLNESS: The patient is a 38 y/o male with a history of depression and anxiety complaining of chest pain last night and left arm numbness. He reports he went to sleep last night with some chest pain. This morning, he awoke with a start and his left arm was numb. 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 He was slowly able to regain movement and the arm continues to feel numb and tingling. He reports he took Benadryl, Sudafed, and Xanax this morning. He had a full cardiac workup within the past year and a half without any significant findings. He feels his symptoms may be psychiatric in nature as he had some visual disturbance while driving here (described as squigly lines) which were consistent with previous symptoms in August related to his depression and anxiety medications. REVIEW OF SYSTEMS: A comprehensive 10 system review of systems is otherwise negative aside from elements mentioned in the history of present illness and medical decision making. PHYSICAL EXAM: HR, BP, O2 Sat, RR. Temp noted General Appearance: Alert, well hydrated, appropriate, and non-toxic appearing. Head: Atraumatic without scalp tenderness or obvious injury Eyes: Pupils equal, round, reactive to light and accommodation, EOMI, no trauma , no injection. Ears: Clear bilaterally, no perforation, normal landmarks Nose: Atraumatic, no rhinorrhea, clear. Throat: There is no erythema or exudates, no lesions, normal tonsils, mucus membranes moist. Neck: Supple, 2+ carotid upstroke, nontender, no lymphadenopathy. Respiratory: No retractions, no distress, no wheezes, and no accessory muscle use. Lungs are clear to auscultation bilaterally. Cardiovascular: Regular rate and rhythm, no murmurs, rubs, or gallops. Bilateral carotid, radial, dorsalis pedis, and posterior tibial pulses intact. Good capillary refill all extremities. Gastrointestinal: Abdomen is soft, nontender, non-distended, no masses, no rebound, no guarding, no peritoneal signs. Musculoskeletal: Normal active ROM of all extremities, atraumatic. Neurological: Alert, appropriate, and interactive. The patient has normal DTRs and non-focal cranial nerves, motor, sensory, and cerebellar exam. Skin: No rashes, good turgor, no nodules on palpation. Past medical history: Depression, anxiety, sleep paralysis, costochondritis, obesity Past surgical history: Denies Family history: Non-contributory Social history: Lives in [place], [facility], medicaid patient DIAGNOSTICS/PROCEDURES/CRITICAL CARE TIME: The 12 lead EKG was interpreted by myself. See hard copy and/or "tracemaster" electronic copy for interpretation. Sinus rhythm. DIFFERENTIAL DIAGNOSIS: The differential diagnosis for the patient's chest pain included but was not limited to myocardial ischemia, pulmonary embolus, chest wall pain, pleural inflammation, pulmonary infectious causes, stress, and anxiety. MEDICAL DECISION MAKING: The patient presents with chest pain and left arm paralysis. He reports he has had a full cardiac workup with in the last year and a half. He feels this may be psychiatric in origin as he has been exceedingly stressed and has some similar symptoms to previous episodes of stress. Plan for EKG, iSTAT, and troponin. This patient has no evidence of any cardio vascular symptoms. He had a recent nuclear stress test and an echocardiogram due to his obesity and recurrent symptoms which were all unremarkable. He had these within the last year and a half he states. He has a negative evaluation here including normal EKG, troponin, and laboratory studies. This patient believes he was having anxiety any really woke up with a left arm that was asleep. He has a very large individual and he has woken up with other limbs having sleep paralysis in the past. He will follow up with primary doctor Cardiology. I believe the patient is correct this is most likely related to anxiety - Data Points Laboratory Results: 07/13/18 07/13/18 08:40 08:26 POC Hgb 15.0 gm/dL gm/dL (13.7-17.5) POC Hct 44 % % (40-51) POC Sodium 141 mEq/L mEq/L (135-145) POC Potassium 3.9 mEq/L mEq/L (3.3-5.0) POC Chloride 104 mEq/L mEq/L (97-110) POC BUN 18 mg/dL mg/dL (7-23) POC Creatinine 1.1 mg/dL mg/dL (0.7-1.3) POC Glucose 96 mg/dL mg/dL (70-100) POC Troponin I 0.00 ng/mL ng/mL (0.00-0.08) Point of Care Test Results: Chemistry 07/13/18 07/13/18 08:40 08:26 POC Sodium 141 mEq/L mEq/L (135-145) POC Potassium 3.9 mEq/L mEq/L (3.3-5.0) POC Chloride 104 mEq/L mEq/L (97-110) POC BUN 18 mg/dL mg/dL (7-23) POC Creatinine 1.1 mg/dL mg/dL (0.7-1.3) POC Glucose 96 mg/dL mg/dL (70-100) POC Troponin I 0.00 ng/mL ng/mL (0.00-0.08) ISTAT H&H 07/13/18 08:40 POC Hgb 15.0 gm/dL gm/dL (13.7-17.5) POC Hct 44 % % (40-51) Departure - Departure Disposition: Home, Routine, Self-Care Clinical Impression: Anxiety about health Condition: Good Instructions: Anxiety (ED) Referrals: Allan Longoria MD [Primary Care Provider] - As per Instructions Report Scribed for: Handy Scales Report Scribed by: Jazlyn Locke Date of Report: 07/13/18 Time of Report: 09:05
[2018-07-13 08:36] VITALS: BP 118/72
--- NOTE | 2018-07-21 17:03 | CPEKG ---
Test Reason : OPEN Blood Pressure : / mmHG Vent. Rate : 067 BPM Atrial Rate : 068 BPM P-R Int : 159 ms QRS Dur : 097 ms QT Int : 388 ms P-R-T Axes : -22 005 002 degrees QTc Int : 410 ms Sinus rhythm Low voltage, precordial leads Confirmed by Handy Scales ([id number]) on 07/21/2018 5:03:09 PM Referred By: Confirmed By:Handy Scales
== END 2018-07-13 09:02 | disposition home or self-care (01) ==
DX: F41.8 Other specified anxiety disorders (principal)
CPT/HCPCS: 82435-PO; 82565-PO; 82947-PO; 84132-PO; 84295-PO; 84484-ER; 84520-PO; 85014-ER

== ENCOUNTER → 2018-11-11 | Outpatient (CLI) | payer MEDICAID | LOC: CIMAGING 13:49 | PROVIDERS: ATTEND Internal Medicine | DX: M79.672 Pain in left foot (principal) | CPT/HCPCS: 73630-PO ==